=== PATIENT | female | born 1945 | race Caucasian/White ===

== ENCOUNTER 2016-07-09 09:31 | Inpatient (IN) | payer OTHER, MEDICARE ==
[2016-07-09 10:25] LABS: BASOPHIL 0.7 % (0-2.0); EOSINOPHIL 0.6 % (0-4.5); MCHC 33.5 g/dl (32.0-36.0); MEAN CELL VOLUME 89.5 fl (80-96); MEAN PLT VOLUME 8.2 fl (7.5-11.1); NEUTROPHILS 57.8 % (42.8-82.8); PLATELET COUNT 179 K/MM3 (134-434); RDW 12.7 % (11.6-15.6); WHITE BLOOD COUNT 6.7 K/mm3 (4.0-10.0)
[2016-07-09 10:44] LABS: INR 1.16 (0.82-1.09); PROTHROMBIN TIME (PATIENT) 12.8 SEC (9.98-11.88)
[2016-07-09 11:09] LABS: ALBUMIN 3.8 g/dl (3.4-5.0); ANION GAP 8 (8-16); BILIRUBIN,TOTAL 1.2 mg/dL (0.2-1.0); CALCIUM 8.9 mg/dL (8.5-10.1); CO2 29 mmol/L (21-32); CREATININE 0.8 mg/dL (0.55-1.02); GLUCOSE,RANDOM 169 mg/dL (74-106); MAGNESIUM 1.7 mg/dL (1.8-2.4); SGOT/AST 50 U/L (15-37); SGPT/ALT 103 U/L (12-78); TOT PROT 6.8 g/dl (6.4-8.2)
[2016-07-09 11:12] LABS: ALK PHOS 143 U/L (45-117); TROPONIN I < 0.02 ng/ml (0.00-0.05)
--- NOTE | 2016-07-09 11:51 | PDOC ---
History of Present Illness - General Chief Complaint: Shortness of Breath Stated Complaint: SOB Time Seen by Provider: 07/09/16 09:51 - History of Present Illness Initial Comments: 07/09/16 11:50 CHIEF COMPLAINT: SOB HISTORY OF PRESENT ILLNESS: 70 yo F with hx of HTN and DM presents to ED with SOB x 2 months, worsening this week. Patient also complains of swelling of legs and pain to the R leg. Patient denies any cough, fever, nausea, vomiting. No recent travel or sick contacts. PAST MEDICAL HISTORY: Denies past medical history FAMILY HISTORY: Denies SOCIAL HISTORY: Denies tobacco, alcohol, illicit drug use. SURGICAL HISTORY: Denies ALLERGIES: No known drug allergies REVIEW OF SYSTEMS General/Constitutional: Denies fever or chills. Denies weakness, weight change. HEENT: Denies change in vision. Denies ear pain or discharge. Denies sore throat. Cardiovascular: Denies chest pain. Respiratory: Shortness of breath x 2 months. Denies cough, wheezing, or hemoptysis. Gastrointestinal: Denies nausea, vomiting, diarrhea or constipation. Denies rectal bleeding. Genitourinary: Denies dysuria, frequency, or change in urination. Musculoskeletal: Swelling to legs. Skin and breasts: Denies rash or easy bruising. Neurologic: Denies headache, vertigo, loss of consciousness, or loss of sensation. PHYSICAL EXAM General Appearance: Well-appearing, appropriately dressed. No apparent distress , no intoxication. HEENT: EOMI, PERRLA, normal ENT inspection, normal voice, TMs normal, pharynx normal. No conjunctival pallor. No photophobia, scleral icterus. Neck: Supple. Trachea midline. No tenderness, rigidity, carotid bruit, stridor , lymphadenopathy, or thyromegaly. Respiratory/Chest: Crackles to base of R lung, SOB. No chest tenderness, respiratory distress, accessory muscle use. Cardiovascular: RRR. S1, S2. Vascular Pulses: Dorsalis-Pedis (R): 2+, Dorsalis-Pedis (L): 2+ Gastrointestinal/Abdominal: Normal bowel sounds. Abdomen soft, non-distended. No tenderness or rebound tenderness. No organomegaly, pulsatile mass, guarding , hernia, hepatomegaly, splenomegaly. Lymphatic: No adenopathy, tenderness. Musculoskeletal/Extremities: 1+ edema to lower extremities b/l TTP of R calf. Normal inspection. FROM of all extremities, normal capillary refill. Pelvis Stable. No CVA tenderness. No tenderness to extremities, pedal edema, swelling , erythema or deformity. Integumentary: Appropriate color, dry, warm. No cyanosis, erythema, jaundice or rash Neurologic: sustainability communicator II-XII intact. Fully oriented, alert. Appropriate mood/affect. Motor strength 5/5. No appreciable EOM palsy, facial droop or sensory deficit. 07/09/16 11:51 Past History - Past Medical History Allergies/Adverse Reactions: Allergies Allergy/AdvReac Type Severity Reaction Status Date / Time No Known Allergies Allergy Verified 07/09/16 09:40 Home Medications: Ambulatory Orders Apixaban [Eliquis] 5 mg PO BID 07/09/16 Glimepiride [Amaryl] 4 mg PO BID 07/09/16 Metformin HCl [Glucophage] 1,000 mg PO BID 07/09/16 Metoprolol Succinate [Toprol Xl -] 50 mg PO DAILY 07/09/16 Simvastatin 20 mg PO DAILY 07/09/16 Anemia: No Cardiac Disorders: No CVA: No COPD: No Dementia: No Diabetes: Yes Disorders: No HTN: Yes Hypercholesterolemia: Yes Liver Disease: No Seizures: No Thyroid Disease: No - Surgical History Abdominal Surgery: Yes (HERNIA) Cardiac Surgery: No - Psycho/Social/Smoking Cessation Hx Anxiety: No Suicidal Ideation: No Smoking History: Never smoked Hx Alcohol Use: No Drug/Substance Use Hx: No Substance Use Type: None Hx Substance Use Treatment: No *Physical Exam - Vital Signs Last Vital Signs Temp Pulse Resp BP Pulse Ox 97.4 F L 83 22 142/71 96 07/09/16 09:36 07/09/16 10:34 07/09/16 10:34 07/09/16 10:34 07/09/16 10:34 ED Treatment Course - LABORATORY CBC & Chemistry Diagram: 07/09/16 10:15 07/09/16 10:15 - ADDITIONAL ORDERS Additional order review: Laboratory Results 07/09/16 07/09/16 07/09/16 10:55 10:15 10:15 INR 1.16 H D-Dimer < 200 Sodium 139 Potassium 4.5 Chloride 102 Carbon Dioxide 29 Anion Gap 8 BUN 12 Creatinine 0.8 Creat Clearance w eGFR > 60 Random Glucose 169 H Calcium 8.9 Magnesium 1.7 L Total Bilirubin 1.2 H AST 50 H ALT 103 H Alkaline Phosphatase 143 H Creatine Kinase 39 Troponin I < 0.02 B-Natriuretic Peptide 1589.39 H Total Protein 6.8 Albumin 3.8 07/09/16 10:15 RBC 4.85 MCV 89.5 MCHC 33.5 RDW 12.7 MPV 8.2 Neutrophils % 57.8 Lymphocytes % 33.0 Monocytes % 7.9 Eosinophils % 0.6 Basophils % 0.7 - RADIOLOGY Radiology Studies Ordered: Category Date Time Status CHEST PA & LAT [RAD] Stat Radiology 07/09/16 10:06 Completed Medical Decision Making - Medical Decision Making 07/09/16 11:50 *DC/Admit/Observation/Transfer Diagnosis at time of Disposition: New onset of congestive heart failure - Discharge Dispostion Admit: Yes - Referrals Referrals: Gómez Llanos MD [Primary Care Provider] -
[2016-07-09] MEDS ORDERED: ACETAMINOPHEN 325 MG TABLET (FP) PO PRN (12:10)
[2016-07-09] MEDS ORDERED: ONDANSETRON 4 MG/2 ML VIAL IVPB PRN (12:10)
--- NOTE | 2016-07-09 12:16 | HP ---
Admitting History and Physical - Primary Care Physician PCP: Gómez Llanos - Admission Chief Complaint: Trouble breathing History of Present Illness: Mrs Lorenzo is a pleasant 70 year old female who comes in with difficulty breathing. She only speaks portugese but daughter is at bedside. She says that approximately 2 months ago she began to have trouble breathing. It was not constant and comes in spells. It is associated with exertion, patient cannot tell me how far she can walk before she becomes short of breath. She says lying flat sometimes makes it worse. She notes swelling in both her legs. Her breathing continued to worsen so she was brought in by her daughter for evaluation. She denies fevers, chills, lightheadedness, dizziness, passing out, chest pain, nausea, vomiting, diarrhea, constipation, abdominal pain, or difficulty/pain on urination. She is currently not short of breath at rest. History Source: Patient Limitations to Obtaining History: Language Barrier - Past Medical History Cardiovascular: Yes: HTN Endocrine: Yes: Diabetes Mellitus - Past Surgical History Past Surgical History: Yes: Hernia Repair, Hysterectomy - Smoking History Smoking history: Never smoked - Alcohol/Substance Use Hx Alcohol Use: No History of Substance Use: reports: None - Social History Usual Living Arrangement: Yes: With Child ADL: Independent History of Recent Travel: No Home Medications - Allergies Allergies/Adverse Reactions: Allergies Allergy/AdvReac Type Severity Reaction Status Date / Time No Known Allergies Allergy Verified 07/09/16 09:40 - Home Medications Home Medications: Ambulatory Orders Apixaban [Eliquis] 5 mg PO BID 07/09/16 Glimepiride [Amaryl] 4 mg PO BID 07/09/16 Metformin HCl [Glucophage] 1,000 mg PO BID 07/09/16 Metoprolol Succinate [Toprol Xl -] 50 mg PO DAILY 07/09/16 Simvastatin 20 mg PO DAILY 07/09/16 Family Disease History - Family Disease History Family Disease History: Heart Disease: Brother Review of Systems Findings/Remarks: Full review of systems obtained, as per HPI and otherwise negative Physical Examination Vital Signs: Vital Signs Temperature 97.4 F L 07/09/16 09:36 Pulse Rate 83 07/09/16 10:34 Respiratory Rate 22 07/09/16 10:34 Blood Pressure 142/71 07/09/16 10:34 O2 Sat by Pulse Oximetry (%) 96 07/09/16 10:34 Constitutional: Yes: Well Nourished, No Distress, Calm Eyes: Yes: Conjunctiva Clear, EOM Intact, PERRL HENT: Yes: Atraumatic, Normocephalic Cardiovascular: Yes: Pulse Irregular. No: Tachycardia, Gallop, Murmur, Rub Respiratory: Yes: Regular, Rhonchi (bilaterally). No: Rales, Wheezes Gastrointestinal: Yes: Normal Bowel Sounds, Soft. No: Distention, Tenderness Extremities: Yes: WNL Edema: Yes Edema: LLE: Trace, RLE: Trace Labs: Laboratory Results - last 24 hr 07/09/16 07/09/16 07/09/16 10:15 10:15 10:15 WBC 6.7 RBC 4.85 Hgb 14.5 Hct 43.4 MCV 89.5 MCHC 33.5 RDW 12.7 Plt Count 179 MPV 8.2 Neutrophils % 57.8 Lymphocytes % 33.0 Monocytes % 7.9 Eosinophils % 0.6 Basophils % 0.7 INR 1.16 H D-Dimer Sodium 139 Potassium 4.5 Chloride 102 Carbon Dioxide 29 Anion Gap 8 BUN 12 Creatinine 0.8 Creat Clearance w eGFR > 60 Random Glucose 169 H Calcium 8.9 Magnesium 1.7 L Total Bilirubin 1.2 H AST 50 H ALT 103 H Alkaline Phosphatase 143 H Creatine Kinase 39 Troponin I < 0.02 B-Natriuretic Peptide 1589.39 H Total Protein 6.8 Albumin 3.8 07/09/16 10:55 WBC RBC Hgb Hct MCV MCHC RDW Plt Count MPV Neutrophils % Lymphocytes % Monocytes % Eosinophils % Basophils % INR D-Dimer < 200 Sodium Potassium Chloride Carbon Dioxide Anion Gap BUN Creatinine Creat Clearance w eGFR Random Glucose Calcium Magnesium Total Bilirubin AST ALT Alkaline Phosphatase Creatine Kinase Troponin I B-Natriuretic Peptide Total Protein Albumin Imaging - Results Chest X-ray: Report Reviewed, Image Reviewed EKG: Image Reviewed Problem List - Problems (1) New onset of congestive heart failure Assessment/Plan: -unsure is systolic or diastolic -ECHO ordered -admit to telemetry -cardiac enzymes x3, first set negative -lasix 40mg IV daily -cardiology consult -I/Os and daily weights - Code(s): I50.9 - HEART FAILURE, UNSPECIFIED (2) Diabetes Assessment/Plan: -diabetic diet -continue amaryl and metformin Code(s): E11.9 - TYPE 2 DIABETES MELLITUS WITHOUT COMPLICATIONS (3) HLD (hyperlipidemia) Assessment/Plan: -continue statin Code(s): E78.5 - HYPERLIPIDEMIA, UNSPECIFIED (4) HTN (hypertension) Assessment/Plan: -continue toprol Code(s): I10 - ESSENTIAL (PRIMARY) HYPERTENSION (5) Atrial fibrillation Assessment/Plan: -rate controlled -continue toprol and eliquis Code(s): I48.91 - UNSPECIFIED ATRIAL FIBRILLATION Qualifiers: Atrial fibrillation type: chronic Qualified Code(s): I48.2 - Chronic atrial fibrillation
[2016-07-09] MEDS ORDERED: FUROSEMIDE 40 MG/4 ML INJECTABLE VIAL ONE (12:38)
[2016-07-09] MEDS: FUROSEMIDE 40 MG/4 ML INJECTABLE VIAL IVPUSH SCH (12:42)
[2016-07-09] MEDS ORDERED: METOPROLOL SUCCINATE 50 MG TAB.SR.24H (FP) ONE (13:01)
[2016-07-09 13:05] VITALS: BMI 26.8
[2016-07-09] MEDS: METOPROLOL SUCCINATE 50 MG TAB.SR.24H (FP) PO SCH (13:12)
[2016-07-09] MEDS: metFORMIN HCL 500 MG TABLET (FP) PO SCH (17:33)
[2016-07-09] MEDS: GLIMEPIRIDE 4 MG TABLET (FP) PO SCH (17:34)
[2016-07-09 19:15] LABS: TROPONIN I < 0.02 ng/ml (0.00-0.05)
--- NOTE | 2016-07-09 19:16 | EKG ---
Test Reason : Blood Pressure : / mmHG Vent. Rate : 098 BPM Atrial Rate : 053 BPM P-R Int : 000 ms QRS Dur : 084 ms QT Int : 366 ms P-R-T Axes : 000 057 018 degrees QTc Int : 467 ms POOR DATA QUALITY, INTERPRETATION MAY BE ADVERSELY AFFECTED ATRIAL FIBRILLATION NONSPECIFIC T WAVE ABNORMALITY ABNORMAL ECG WHEN COMPARED WITH ECG OF 15-NOV-2008 10:10, ATRIAL FIBRILLATION HAS REPLACED SINUS RHYTHM VENT. RATE HAS INCREASED BY 39 BPM NONSPECIFIC T WAVE ABNORMALITY NOW EVIDENT IN INFERIOR LEADS T WAVE INVERSION NO LONGER EVIDENT IN LATERAL LEADS Confirmed by MEDARDO COLIN MD ([id number]) on 07/09/2016 7:15:27 PM Referred By: Confirmed By:MEDARDO COLIN MD
[2016-07-09] MEDS: ATORVASTATIN CA 10 MG TABLET (FP) PO SCH (21:15)
[2016-07-09] MEDS: APIXABAN 5 MG TABLET PO SCH (21:15)
[2016-07-09] MEDS: DOCUSATE SODIUM 100 MG CAPSULE (FP) PO SCH (21:15)
[2016-07-10] MEDS: metFORMIN HCL 500 MG TABLET (FP) PO SCH ×2 (06:03→17:25)
[2016-07-10] MEDS: GLIMEPIRIDE 4 MG TABLET (FP) PO SCH ×2 (06:03→17:25)
[2016-07-10 07:30] LABS: ALBUMIN 3.7 g/dl (3.4-5.0); ALK PHOS 121 U/L (45-117); ANION GAP 8 (8-16); BILIRUBIN,TOTAL 1.6 mg/dL (0.2-1.0); CALCIUM 9.6 mg/dL (8.5-10.1); CHOLESTEROL 144 mg/dL (50-200); CO2 30 mmol/L (21-32); COCKROFT - GAULT 59.4405; CREATININE 0.8 mg/dL (0.55-1.02); GLUCOSE,RANDOM 150 mg/dL (74-106); LDL CHOLESTEROL (ONLY SJRH) 77 mg/dL (5-100); MAGNESIUM 1.6 mg/dL (1.8-2.4); SGOT/AST 22 U/L (15-37); SGPT/ALT 79 U/L (12-78); TOT PROT 6.6 g/dl (6.4-8.2)
[2016-07-10 07:33] LABS: TROPONIN I < 0.02 ng/ml (0.00-0.05)
[2016-07-10 08:35] LABS: BASOPHIL 0.6 % (0-2.0); MCHC 34.3 g/dl (32.0-36.0); MEAN CELL VOLUME 87.6 fl (80-96); MEAN PLT VOLUME 8.6 fl (7.5-11.1); NEUTROPHILS 46.9 % (42.8-82.8); PLATELET COUNT 177 K/MM3 (134-434); RDW 12.6 % (11.6-15.6); WHITE BLOOD COUNT 7.1 K/mm3 (4.0-10.0)
[2016-07-10] MEDS: APIXABAN 5 MG TABLET PO SCH ×2 (09:47→21:13)
[2016-07-10] MEDS: DOCUSATE SODIUM 100 MG CAPSULE (FP) PO SCH ×2 (09:47→21:13)
[2016-07-10] MEDS: METOPROLOL SUCCINATE 50 MG TAB.SR.24H (FP) PO SCH (09:48)
[2016-07-10] MEDS: FUROSEMIDE 40 MG/4 ML INJECTABLE VIAL IVPUSH SCH (09:48)
--- NOTE | 2016-07-10 10:03 | CONSULT ---
Consult Consult Specialty:: Cardiology (Dr. Thomson) Referred by:: Dr Mccallum Reason for Consultation:: Dyspnea with elevated BNP - History of Present Illness Chief Complaint: Dyspnea History of Present Illness: 70 year old female Known h/o DM, hpl and atrial fibrillation on NOAC Followed by Dr. Thomson and last seen [address] TECHNOLOGIST stress echo 06/2015 with no ischemia (?LVEF on this study) Now presents with dyspnea and LE edema Symptoms have been present for 2 months but initially came and went, but over the past 1 week dyspnea continues and developed LE jone Daughter chad she thinks she has been compliant with her medical regimen at home but not certain as she lives with her other sister She does admit to adding salt to her foods. On admission noted BNP 1589 Given Lasix 40mg IVP with good UOP 1250cc Feels improved this AM - History Source History Provided By: Patient, Family Member (Daughter Ally) Limitations to Obtaining History: Language Barrier - Past Medical History Cardio/Vascular: Yes: HTN ...: No Endocrine: Yes: Diabetes Mellitus - Past Surgical History Past Surgical History: Yes: Hernia Repair, Hysterectomy - Alcohol/Substance Use Hx Alcohol Use: No History of Substance Use: reports: None - Smoking History Smoking history: Never smoked Have you smoked in the past 12 months: No - Social History ADL: Independent History of Recent Travel: No Home Medications - Allergies Allergies/Adverse Reactions: Allergies Allergy/AdvReac Type Severity Reaction Status Date / Time No Known Allergies Allergy Verified 07/09/16 09:40 - Home Medications Home Medications: Ambulatory Orders Apixaban [Eliquis] 5 mg PO BID 07/09/16 Glimepiride [Amaryl] 4 mg PO BID 07/09/16 Metformin HCl [Glucophage] 1,000 mg PO BID 07/09/16 Metoprolol Succinate [Toprol Xl -] 50 mg PO DAILY 07/09/16 Simvastatin 20 mg PO DAILY 07/09/16 Family Disease History - Family Disease History Family Disease History: Heart Disease: Brother Review of Systems - Review of Systems Cardiovascular: reports: Edema, Shortness of Breath Physical Exam Vital Signs: Vital Signs Temperature 98.4 F 07/10/16 05:00 Pulse Rate 79 07/10/16 05:00 Respiratory Rate 18 07/10/16 05:00 Blood Pressure 148/76 07/10/16 05:00 O2 Sat by Pulse Oximetry (%) 95 07/09/16 21:00 Constitutional: Yes: No Distress, Calm Eyes: Yes: WNL HENT: Yes: WNL Neck: Yes: Supple Cardiovascular: Yes: Pulse Irregular, Murmur Respiratory: Yes: Diminished (crackles bilateral in bases) Gastrointestinal: Yes: WNL Extremities: Yes: WNL Edema: No Labs: CBC, BMP 07/10/16 05:35 07/10/16 05:35 Imaging - Results X-ray: Report Reviewed (PVC with bilatearl pleursl effusions) EKG: Image Reviewed (Afib at 98/min with non-specific ST changes) Assessment/Plan 70 yo female with exertional dyspnea, LE edema and elevated BNP 1) Dyspena -Acute on chronic DHF likely (HFpEF), although unclear what her last LVEF was ( normal CT TECHNOLOGIST echo in 06/2015) -Daughter could not be certain she takes her meds at home (but not on a diuretic cat home) -Improving with IV Lasix here so far and would continue Lasix 40mg IVP daily -Would get an echo here to assess LVEF 2) AFib -Reasonably rate controlled at present -Continue Apixaban -Continue Metoprolol 3) DM -Management as per primary team -she is hypertensive this AM and if remains would benefit from ACEi/ARB given her DM 4) HPL -Continue Simvastatin
--- NOTE | 2016-07-10 12:49 | PN ---
Progress Note, Physician Chief Complaint: Ms Lorenzo says she is feeling better today. Shortness of breath resolved. No cp or n/v. - Current Medication List Current Medications: Active Medications Acetaminophen (Tylenol -) 650 mg PO Q6H PRN PRN Reason: FEVER OR PAIN Apixaban (Eliquis -) 5 mg PO BID [facility] Last Admin: 07/10/16 09:47 Dose: 5 mg Atorvastatin Calcium (Lipitor -) 10 mg PO HS [facility] Last Admin: 07/09/16 21:15 Dose: 10 mg Docusate Sodium (Colace -) 100 mg PO BID [facility] Last Admin: 07/10/16 09:47 Dose: 100 mg Furosemide (Lasix Injection -) 40 mg IVPUSH DAILY [facility] Last Admin: 07/10/16 09:48 Dose: 40 mg Glimepiride (Amaryl -) 4 mg PO BIDAC [facility] Last Admin: 07/10/16 06:03 Dose: 4 mg Metformin HCl (Glucophage -) 1,000 mg PO BIDAC [facility] Last Admin: 07/10/16 06:03 Dose: 1,000 mg Metoprolol Succinate (Toprol Xl -) 50 mg PO DAILY [facility] Last Admin: 07/10/16 09:48 Dose: 50 mg Ondansetron HCl (Zofran Injection) 4 mg IVPB Q6H PRN PRN Reason: NAUSEA - Objective Vital Signs: Vital Signs Temperature 97.8 F 07/10/16 09:00 Pulse Rate 90 07/10/16 09:00 Respiratory Rate 22 07/10/16 09:00 Blood Pressure 164/90 07/10/16 09:00 O2 Sat by Pulse Oximetry (%) 95 07/09/16 21:00 Constitutional: Yes: Well Nourished, No Distress, Calm Cardiovascular: Yes: Pulse Irregular. No: Tachycardia, Gallop, Murmur, Rub Respiratory: Yes: Regular, Rhonchi (bibasilar). No: Rales, Wheezes Gastrointestinal: Yes: Normal Bowel Sounds, Soft. No: Distention, Tenderness Extremities: Yes: WNL Edema: No Labs: CBC, BMP 07/10/16 05:35 07/10/16 05:35 INR, PTT INR 1.16 (0.82-1.09) H 07/09/16 10:15 Problem List - Problems (1) New onset of congestive heart failure Code(s): I50.9 - HEART FAILURE, UNSPECIFIED (2) Diabetes Code(s): E11.9 - TYPE 2 DIABETES MELLITUS WITHOUT COMPLICATIONS (3) HLD (hyperlipidemia) Code(s): E78.5 - HYPERLIPIDEMIA, UNSPECIFIED (4) HTN (hypertension) Code(s): I10 - ESSENTIAL (PRIMARY) HYPERTENSION (5) Atrial fibrillation Code(s): I48.91 - UNSPECIFIED ATRIAL FIBRILLATION Qualifiers: Atrial fibrillation type: chronic Qualified Code(s): I48.2 - Chronic atrial fibrillation Assessment/Plan (1) New onset of congestive heart failure Assessment/Plan: -much improved today -diuresing well with IV lasix -awaiting ECHO -cardiology following -possible discharge tomorrow Code(s): I50.9 - HEART FAILURE, UNSPECIFIED (2) Diabetes Assessment/Plan: -diabetic diet -continue amaryl and metformin Code(s): E11.9 - TYPE 2 DIABETES MELLITUS WITHOUT COMPLICATIONS (3) HLD (hyperlipidemia) Assessment/Plan: -continue statin Code(s): E78.5 - HYPERLIPIDEMIA, UNSPECIFIED (4) HTN (hypertension) Assessment/Plan: -continue toprol Code(s): I10 - ESSENTIAL (PRIMARY) HYPERTENSION (5) Atrial fibrillation Assessment/Plan: -rate controlled -continue toprol and eliquis Code(s): I48.91 - UNSPECIFIED ATRIAL FIBRILLATION Qualifiers: Atrial fibrillation type: chronic Qualified Code(s): I48.2 - Chronic atrial fibrillation
[2016-07-10] MEDS: ATORVASTATIN CA 10 MG TABLET (FP) PO SCH (21:13)
[2016-07-11] MEDS: metFORMIN HCL 500 MG TABLET (FP) PO SCH (06:48)
[2016-07-11] MEDS: GLIMEPIRIDE 4 MG TABLET (FP) PO SCH (06:48)
[2016-07-11 07:54] LABS: COCKROFT - GAULT 66.4785; CREATININE 0.7 mg/dL (0.55-1.02)
--- NOTE | 2016-07-11 08:46 | PN ---
Progress Note, Physician Chief Complaint: chf, afib History of Present Illness: no more sob or cp since DOA; no palpitations, no dizzy no cigs - Current Medication List Current Medications: Active Medications Acetaminophen (Tylenol -) 650 mg PO Q6H PRN PRN Reason: FEVER OR PAIN Apixaban (Eliquis -) 5 mg PO BID [facility] Last Admin: 07/10/16 21:13 Dose: 5 mg Atorvastatin Calcium (Lipitor -) 10 mg PO HS [facility] Last Admin: 07/10/16 21:13 Dose: 10 mg Docusate Sodium (Colace -) 100 mg PO BID [facility] Last Admin: 07/10/16 21:13 Dose: 100 mg Furosemide (Lasix Injection -) 40 mg IVPUSH DAILY [facility] Last Admin: 07/10/16 09:48 Dose: 40 mg Glimepiride (Amaryl -) 4 mg PO BIDAC [facility] Last Admin: 07/11/16 06:48 Dose: 4 mg Metformin HCl (Glucophage -) 1,000 mg PO BIDAC [facility] Last Admin: 07/11/16 06:48 Dose: 1,000 mg Metoprolol Succinate (Toprol Xl -) 50 mg PO DAILY [facility] Last Admin: 07/10/16 09:48 Dose: 50 mg Ondansetron HCl (Zofran Injection) 4 mg IVPB Q6H PRN PRN Reason: NAUSEA - Objective Vital Signs: Vital Signs Temperature 98.4 F 07/11/16 06:00 Pulse Rate 84 07/11/16 06:00 Respiratory Rate 20 07/11/16 06:00 Blood Pressure 125/69 07/11/16 06:00 O2 Sat by Pulse Oximetry (%) 96 07/10/16 21:00 Constitutional: Yes: No Distress, Calm Eyes: No: Sclera Icterus HENT: No: Nasal Congestion Cardiovascular: Yes: Pulse Irregular, S1, S2, Other (PMI non diplaced). No: JVD , Gallop, Murmur Respiratory: Yes: CTA Bilaterally. No: Accessory Muscle Use, Rales, Wheezes Gastrointestinal: Yes: Normal Bowel Sounds, Soft. No: Tenderness Musculoskeletal: Yes: Other (No kyphosis) Extremities: No: Cold Edema: No Integumentary: No: Jaundice Neurological: Yes: Alert, Oriented (x3) Psychiatric: No: Agitated Labs: CBC, BMP 07/10/16 05:35 07/11/16 05:35 INR, PTT INR 1.16 (0.82-1.09) H 07/09/16 10:15 - ....Imaging EKG: Other (tele: AF good HR (70s-80s)) Assessment/Plan MPI 06/22 (chun): no STs. no ischemia. nl EF. 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; mild MR; mild- to-mod TR; no RVSP Acute diast CHF: -Acute on chronic DHF likely (HFpEF): BNP 1500, CXR small effusions (R > L) with cephalization and interstitial prominence likely interstitial edema -pt presented with new afib of uncertain duration about 3 weeks ago to the office, HR controlled and has been since -LVEF normal on outpt w/u -07/11: wt rapidly improving with lasix 40 iv qd: 137-->130-->127 here (was 142 in office 06/15/16) -sx's have entirely resolved it seems--she will walk halls 2-3 times with dtr ( translating) and observe for sob -rpt CXR today -if CXR ok and no signif sob with ambulation, will plan d/c home on lasix 40 po qd AFib -HR well controlled on metoprolol -Continue Apixaban -suspect diast chf triggered by loss of sinus rhythm -d/w'd dtr option of DCCV, though she thinks mom would stongly prefer to defer for now given terminally ill -will observe her on po lasix (she's lasix naive)--if chf completely resolves, will defer rhythm control strategy for now -has f/u with me in 1 week chest pain: -sx ongoing for few weeks now, correlates with when saw me and was in new afib -suspect chf sx +/- anxiety related to 's recent critical illness -no ischemia on MPI few weeks ago -trop neg x 3, no isch ST on ekg -sx's resolved with diuresis--observe DM -Management as per primary team HPL -Continue Simvastatin if cxr ok and no signif sob with ambulation later this am, she is ok for d/c from cv p.o.v.
[2016-07-11] MEDS: APIXABAN 5 MG TABLET PO SCH (10:26)
[2016-07-11] MEDS: DOCUSATE SODIUM 100 MG CAPSULE (FP) PO SCH (10:26)
[2016-07-11] MEDS: FUROSEMIDE 40 MG/4 ML INJECTABLE VIAL IVPUSH SCH (10:26)
[2016-07-11] MEDS: METOPROLOL SUCCINATE 50 MG TAB.SR.24H (FP) PO SCH (10:26)
--- NOTE | 2016-07-11 14:09 | DS ---
Physical Examination Vital Signs: Vital Signs Temperature 98.4 F 07/11/16 10:00 Pulse Rate 104 H 07/11/16 10:00 Respiratory Rate 22 07/11/16 10:00 Blood Pressure 138/75 07/11/16 10:00 O2 Sat by Pulse Oximetry (%) 94 L 07/11/16 09:00 Constitutional: Yes: Well Nourished, No Distress, Calm Cardiovascular: Yes: Regular Rate and Rhythm. No: Gallop, Murmur, Rub Respiratory: Yes: Regular, CTA Bilaterally. No: Rales, Rhonchi, Wheezes Gastrointestinal: Yes: Normal Bowel Sounds, Soft. No: Distention, Tenderness Extremities: Yes: WNL Edema: No Labs: CBC, BMP 07/10/16 05:35 07/11/16 05:35 Discharge Summary Reason For Visit: NEW ONSET OF CONGESTIVE HEART FAILURE Current Active Problems Atrial fibrillation (Acute) Diabetes (Acute) HLD (hyperlipidemia) (Acute) HTN (hypertension) (Acute) New onset of congestive heart failure (Acute) Hospital Course: (1) New onset of congestive heart failure Code(s): I50.9 - HEART FAILURE, UNSPECIFIED (2) Diabetes Code(s): E11.9 - TYPE 2 DIABETES MELLITUS WITHOUT COMPLICATIONS (3) HLD (hyperlipidemia) Code(s): E78.5 - HYPERLIPIDEMIA, UNSPECIFIED (4) HTN (hypertension) Code(s): I10 - ESSENTIAL (PRIMARY) HYPERTENSION (5) Atrial fibrillation Code(s): I48.91 - UNSPECIFIED ATRIAL FIBRILLATION Qualifiers: Atrial fibrillation type: chronic Qualified Code(s): I48.2 - Chronic atrial fibrillation Mrs Lorenzo is a very pleasant 70 year old female who came in with new onset CHF with exacerbation. She was admitted to the hospital and started on IV lasix. She diuresed well. She underwent an ECHO and was found to have diastolic dysfunction. Cardiology was consulted and recommended she be continued on lasix 40mg daily as an outpatient. Currently she is doing well. She is safe for discharge home. 31 minutes spent in preparation of this discharge Condition: Good - Instructions Diet, Activity, Other Instructions: low salt diet. resume previous activity. Referrals: Gómez Llanos MD [Primary Care Provider] - Disposition: HOME - Home Medications Comprehensive Discharge Medication List: Ambulatory Orders Apixaban [Eliquis] 5 mg PO BID 07/09/16 Glimepiride [Amaryl] 4 mg PO BID 07/09/16 Metformin HCl [Glucophage] 1,000 mg PO BID 07/09/16 Metoprolol Succinate [Toprol XL -] 50 mg PO DAILY 07/09/16 Simvastatin 20 mg PO DAILY 07/09/16 Furosemide [Lasix -] 40 mg PO DAILY #30 tablet 07/11/16
[2016-07-11 15:55] VITALS: BP 134/66; PULSE 97; TEMP 98.3
[2016-07-12] MEDS ORDERED: FUROSEMIDE 40 MG TABLET (FP) PO SCH (10:00)
== END 2016-07-11 16:32 | disposition home or self-care (01) | DRG 293 ==
LOC: JER 09:31 → JERBED 11:51 → J4W 15:21
PROVIDERS: ADMIT Internal Medicine; ATTEND Internal Medicine
DX: I11.0 Hypertensive heart disease with heart failure (principal); I50.33 Acute on chronic diastolic (congestive) heart failure; I48.2 Chronic atrial fibrillation; E11.9 Type 2 diabetes mellitus without complications; E78.5 Hyperlipidemia, unspecified; R07.9 Chest pain, unspecified
CPT/HCPCS: 36415; 71010-TC; 71020-TC; 80048; 80053; 80061; 82550; 83721; 83735; 83880; 84100; 84484; 85025; 85379; 85610; 93005; 93010; 99285-25

== ENCOUNTER 2017-04-19 07:26 | Day surgery (SDC) | payer OTHER, MEDICARE ==
[2017-04-18 11:55] VITALS: BMI 29.0
[2017-04-19] MEDS ORDERED: PROPOFOL 20 ML ONE ×3 (08:40)
[2017-04-19 09:43] VITALS: TEMP 97.7
[2017-04-19 10:44] VITALS: BP 153/55; PULSE 62
--- NOTE | 2017-04-20 16:48 | PATH ---
Surgical Pathology Report Patient Name: SHANI ASHTON [facility]. Rec. #: [id number] /Age/Gender: 1945 (Age: 71) / F Account: [id number] Location: [facility]-ENDOSCOPY Taken: 04/19/2017 Received: 04/19/2017 Reported: 04/20/2017 Physicians: Malgorzata العراقي M.D. Specimen(s) Received A: BX 2ND PORTION OF DUODENUM / BULB B: BX ANTRUM C: RECTAL POLYP Clinical History Preoperative diagnosis: Acid reflux, screening Postoperative diagnosis: Antral gastritis, rectal polyp Final Diagnosis A. DUODENUM, SECOND PORTION/BULB, BIOPSY: SMALL BOWEL MUCOSA WITHOUT SIGNIFICANT PATHOLOGIC FINDINGS. B. STOMACH, ANTRUM, BIOPSY: GASTRIC ANTRAL MUCOSA WITH MODERATE TO SEVERE CHRONIC GASTRITIS. IMMUNOHISTOCHEMICAL STAIN FOR H. PYLORI IS NEGATIVE. C. RECTUM, POLYP, BIOPSY: HYPERPLASTIC POLYP. Electronically Signed Ally Dejesus M.D. Gross Description A. Received in formalin, labeled "biopsy second portion of duodenum/bulb" are 5 miller, irregular portions of soft tissue ranging from 0.1-0.2 cm. in greatest dimension. The specimens are submitted in toto in one cassette. B. Received in formalin, labeled "biopsy antrum" are 4 miller, irregular portions of soft tissue ranging from 0.1-0.3 cm. in greatest dimension. The specimens are submitted in toto in one cassette. C. Received in formalin, labeled "biopsy rectal polyp" are 3 miller, irregular portions of soft tissue ranging from 0.1-0.3 cm. in greatest dimension. The specimens are submitted in toto in one cassette. 04/19/201704/19/2017
== END 2017-04-19 10:46 | disposition home or self-care (01) ==
LOC: JASU-ENDO 07:26
PROVIDERS: ATTEND Internal Medicine Gastroenterology
PROC: 0DB98ZX Excision of Duodenum, Via Natural or Artificial Opening Endoscopic, Diagnostic (ICD-10-PCS; 2017-04-19)
PROC: 0DB68ZX Excision of Stomach, Via Natural or Artificial Opening Endoscopic, Diagnostic (ICD-10-PCS; 2017-04-19)
PROC: 0DBP8ZX Excision of Rectum, Via Natural or Artificial Opening Endoscopic, Diagnostic (ICD-10-PCS; principal; 2017-04-19 08:45)
DX: Z12.11 Encounter for screening for malignant neoplasm of colon (principal); K62.1 Rectal polyp; K29.50 Unspecified chronic gastritis without bleeding
CPT/HCPCS: 82962; 88305-TC; 88342-TC

== ENCOUNTER 2022-01-17 09:44 | Emergency (ER) | payer OTHER, MEDICARE ==
[2022-01-17 09:57] VITALS: RESP 22; BMI 27.1
[2022-01-17] MEDS ORDERED: ACETAMINOPHEN 1000 MG/100 ML BAG IVPB ONE (10:57)
[2022-01-17] MEDS ORDERED: ACETAMINOPHEN INJECTION 100 ML IVPB ONE (11:21)
[2022-01-17 12:49] LABS: EPI CELLS 6 /uL (0-25.1); HYALINE CASTS 0 /uL (0-3.1); URINE APPEARANCE CLEAR; URINE BACTERIA 27 /uL (0-1359); URINE BILIRUBIN NEGATIVE (NEGATIVE); URINE COLOR YELLOW; URINE GLUCOSE (UA) 3+ (NEGATIVE); URINE KETONE NEGATIVE (NEGATIVE); URINE LEUK ESTERASE NEGATIVE (NEGATIVE); URINE NITRITE NEGATIVE (NEGATIVE); URINE PROTEIN 1+ (NEGATIVE); URINE RBC 12 /uL (0-23.9); URINE UROBILINOGEN 0.2 mg/dL (0.2-1.0); URINE WBC 24 /uL (0-25.8)
[2022-01-17 13:14] LABS: BASO % 0.6 % (0-2.0); EOS % 0.4 % (0-4.5); HEMATOCRIT 33.1 % (32.4-45.2); HEMOGLOBIN 10.2 GM/dL (10.7-15.3); LYMPH % 14.5 % (8-40); MCH 22.7 pg (25.7-33.7); MCHC 30.9 g/dl (32.0-36.0); MEAN CELL VOLUME 73.5 fl (80-96); MEAN PLT VOLUME 9.3 fl (7.5-11.1); MONO % 15.2 % (3.8-10.2); NEUT % 69.3 % (42.8-82.8); PLATELET COUNT 184 10^3/uL (134-434); RDW 16.6 % (11.6-15.6); WHITE BLOOD COUNT 11.2 K/mm3 (4.0-10.0)
[2022-01-17 13:33] LABS: ALBUMIN 3.7 g/dl (3.4-5.0); CALCIUM 9.5 mg/dL (8.5-10.1)
[2022-01-17 13:37] LABS: CREATININE 1.2 mg/dL (0.55-1.3)
[2022-01-17 13:38] LABS: BILIRUBIN,TOTAL 0.9 mg/dL (0.2-1)
[2022-01-17 16:57] VITALS: BP 113/42; PULSE 53; TEMP 97.2
== END 2022-01-17 18:44 | disposition home or self-care (01) ==
LOC: JER 09:44
PROC: 3E033GC Introduction of Other Therapeutic Substance into Peripheral Vein, Percutaneous Approach (ICD-10-PCS; principal; 2022-01-17)
DX: M54.89 Other dorsalgia (principal)
CPT/HCPCS: 0241U-QW; 71046-TC-FY; 71275-TC; 80053; 81003; 84484; 85025; 93005; 93010; 99285-25; Q9967